=== PATIENT | female | born 1995 | race Two or more races ===

== ENCOUNTER 2019-05-21 16:42 | Inpatient (IN) | payer OTHER ==
[~2019-05-21] VITALS: Ht 157.5 cm; Wt 3.6 kg
== END 2019-06-26 12:40 | disposition home or self-care (01) | DRG 788 ==
LOC: OB/GYN 05-28 14:45 → LDR 06-23 06:02 → OB/GYN 06-23 06:02
PROVIDERS: ADMIT Obstetrics & Gynecology
PROC: 4A1HXCZ Monitoring of Products of Conception, Cardiac Rate, External Approach (ICD-10-PCS; 2019-06-23)
PROC: 4A033R1 Measurement of Arterial Saturation, Peripheral, Percutaneous Approach (ICD-10-PCS; 2019-06-23)
PROC: 10D00Z1 Extraction of Products of Conception, Low, Open Approach (ICD-10-PCS; principal; 2019-06-23 17:00)
DX: O82 Encounter for cesarean delivery without indication (principal); Z22.330 Carrier of Group B streptococcus; Z3A.39 39 weeks gestation of pregnancy; Z37.0 Single live birth